=== PATIENT | female | born 1985 | race American Indian/Alaskan Native ===

== ENCOUNTER 2021-03-03 09:55 | Emergency (ER) | payer MEDICAID ==
[~2021-03-03] VITALS: Ht 167.6 cm; Wt 64.0 kg
--- NOTE | 2021-03-03 10:39 | NUR ---
Pt triaged and placed in waiting room
[2021-03-03 10:42] VITALS: BP_SYST 121
--- NOTE | 2021-03-03 12:05 | NUR ---
Patient to ER bed 5 to gown for evaluation. Side rails up. Report received.
--- NOTE | 2021-03-03 12:06 | NUR ---
Pt AAO and ambulatory reporting headache x 12 days after receiving Covid vaccine [employer]. Pt reports thart she has been alternating motrin and tylenol that has not worked. Pt reports pain level 10/10 currently. Pt denies any prior medical history.
--- NOTE | 2021-03-03 12:35 | NUR ---
Dr. De Paz at bedside to assess.
--- NOTE | 2021-03-03 12:59 | NUR ---
Pt to CT scan.
--- NOTE | 2021-03-03 13:06 | NUR ---
Pt back from CT scan.
--- NOTE | 2021-03-03 14:30 | NUR ---
Pt resting quietly in no distress awaiting disposition.
[2021-03-03] MEDS ORDERED: KETOROLAC TROMETHAMINE 60 MG/2 ML VIAL IM ONE (15:00)
--- NOTE | 2021-03-03 16:08 | NUR ---
Patient given written and verbal discharge instructions and verbalizes understanding. ER MD discussed with patient the results and treatment provided. Patient in stable condition. ID arm band removed. Patient educated on pain management and to follow up with PMD. Pain improved after administration of Toradol IM per order.Opportunity for questions provided and answered.
[2021-03-03 16:10] VITALS: BP_SYST 121
== END 2021-03-03 16:08 | disposition home or self-care (01) ==
LOC: SED 09:55
DX: S66.911A Strain of unspecified muscle, fascia and tendon at wrist and hand level, right hand, initial encounter (principal); R51.9 Headache, unspecified; Z79.899 Other long term (current) drug therapy; X50.9XXA Other and unspecified overexertion or strenuous movements or postures, initial encounter; Y93.89 Activity, other specified; Y92.89 Other specified places as the place of occurrence of the external cause; Y99.8 Other external cause status
CPT/HCPCS: 70450; 76376; 81025; 96372; 99284; J1885

== ENCOUNTER 2021-04-22 15:31 | Emergency (ER) | payer MEDICAID, SELFPAY ==
[~2021-04-22] VITALS: Ht 162.6 cm; Wt 68.0 kg
[2021-04-22 16:30] VITALS: BP_SYST 110
--- NOTE | 2021-04-22 20:38 | NUR ---
Patient to ER [facility]. Side rails up.
--- NOTE | 2021-04-22 20:39 | NUR ---
ER at [facility] examining patient.
--- NOTE | 2021-04-22 20:50 | NUR ---
COVID-19 swabs collected and sent to lab.
--- NOTE | 2021-04-22 20:54 | NUR ---
CXR at [facility]
[2021-04-22] MEDS ORDERED: KETOROLAC TROMETHAMINE 60 MG/2 ML VIAL IM ONE (21:30)
[2021-04-22] MEDS ORDERED: PRED20TA PO (21:34)
[2021-04-22] MEDS ORDERED: IBUP-1969 PO (21:34)
--- NOTE | 2021-04-22 21:37 | NUR ---
Dr. Bennett at [facility] and explain results and treatment plans.
[2021-04-22 22:12] VITALS: BP_SYST 110
--- NOTE | 2021-04-22 22:12 | NUR ---
Patient given written and verbal discharge instructions and verbalizes understanding. ER MD discussed with patient the results and treatment provided. Patient in stable condition. ID arm band removed. Rx of Ibuprofen and Prednisone given. Patient educated on pain management and to follow up with PMD. Pain Scale 2/10. Opportunity for questions provided and answered. Medication side effect fact sheet provided.
== END 2021-04-22 22:12 | disposition home or self-care (01) ==
LOC: SED 15:31
DX: U07.1 COVID-19 (principal); Z79.899 Other long term (current) drug therapy
CPT/HCPCS: 71045; 81002; 81025; 87426; 99284; J1885; 36415